=== PATIENT | female | born 1945 | race Caucasian/White ===

== ENCOUNTER → 2020-04-07 10:06 | Outpatient (CLI) | payer MEDICARE, OTHER, SELFPAY ==
[2020-04-07 11:03] LABS: Absolute Lymphocyte Count 15.32 X10^3/uL (0.83-4.51); Basophil% 0.5 % (0-1); Eosinophil# 0.34 X10^3/uL; Eosinophils% 1.6 % (0-5); Hematocrit 40.1 % (37-47); Hemoglobin 12.7 g/dL (12.0-15.0); Lymphocyte # 15.32 X10^3/ul (4.0); Lymphocyte % 70.5 % (19-41); Mean Corp Hgb Conc 31.7 g/dL (32-36); Mean Corpuscular Hgb 29.7 pg (27.0-32.0); Mean Corpuscular Volume 93.9 fL (81-99); Mean Platelet Vol. 9.8 fl (6.2-12.0); Monocyte# 1.87 X10^3/uL; Monocyte% 8.6 % (0-10); NRBC Flagged by Analyzer 0 % (0-5); Neutrophil # 4.04 X10^3/uL (2.7-7.7); Neutrophil % 18.6 % (47-70); Platelet Count 249 K/mm3 (150-450); RBC Distribution Width CV 12.8 % (11.6-14.6); RBC Distribution Width SD 43.9 fl (35.1-43.9); Red Blood Count 4.27 M/mm3 (4.2-5.4); White Blood Count 21.7 K/mm3 (4.4-11.0)
[2020-04-07 11:09] LABS: Differential Indicated SCAN CRITERIA MET
[2020-04-07 11:37] LABS: ALB/GLOB Ratio 1.2 RATIO (0.9-2.4); AST(SGOT) 22 U/L (15-37); Alanine Aminotransfer ALT/SGPT 25 U/L (13-56); Albumin, Serum 4.1 g/dL (3.2-5.0); Alkaline Phosphatase 72 U/L (45-117); Anion Gap 4 (5-15); BUN 18 mg/dL (7-18); BUN/Creat Ratio 21.6 RATIO (10-20); Calcium,Total 9.4 mg/dL (8.5-10.1); Chloride 110 mmol/L (98-107); Creatinine, Serum 0.83 mg/dL (0.55-1.02); EST Glomerular Filtration Rate 71 mL/min (>60); Est Glom Filt Rate - Afr Amer 86 mL/min (>60); Globulin 3.3 g/dL (2.2-4.2); Glucose 101 mg/dL (74-106); LDH 239 U/L (84-246); Potassium 4.2 mmol/L (3.5-5.1); Protein, Total 7.4 g/dL (6.4-8.2); Sodium Level 142 mmol/L (136-145); Uric Acid 4.6 mg/dL (2.6-6.0)
[2020-04-07 11:40] LABS: POSITIVE DIFFERENTIAL YES
[2020-04-08 09:15] LABS: Pathologist Review Reviewed
[2020-04-08 16:08] LABS: Immunoglobulin G 898 mg/dL (586-1602); PROEL- A/G Ratio 1.3 (0.7-1.7); PROEL- Albumin 3.8 g/dL (2.9-4.4); PROEL- Alpha-1 Globulin 0.3 g/dL (0.0-0.4); PROEL- Alpha-2 Globulin 0.8 g/dL (0.4-1.0); PROEL- Beta Globulin 1.1 g/dL (0.7-1.3); PROEL- Gamma Globulin 0.9 g/dL (0.4-1.8); PROEL- TOTAL PROTEIN 6.8 g/dL (6.0-8.5)
[2020-04-08 19:07] LABS: Immunofixation Result, Serum Comment: (.); Immunoglobulin A 42 mg/dL (64-422); Immunoglobulin M 44 mg/dL (26-217)
== END ==
DX: C91.10 Chronic lymphocytic leukemia of B-cell type not having achieved remission (principal)
CPT/HCPCS: 36415; 80053; 82784; 83615; 84165; 84550; 85025; 86334